=== PATIENT | male | born 1985 | race Asian ===

== ENCOUNTER 2019-09-25 09:16 | Outpatient (CLI) | payer OTHER ==
[2019-09-25 10:03] LABS: ALANINE AMINOTRANSFERASE 43 U/L (12-78); ASPARTATE AMINO TRANSFERASE 21 U/L (10-37); CHOLESTEROL 204 MG/DL (0-200); TRIGLYCERIDES 72 MG/DL (20-135)
== END 2019-09-25 23:59 | disposition home or self-care (01) ==
LOC: LAB 09:16
PROVIDERS: ATTEND Dermatology
DX: L70.0 Acne vulgaris (principal)
CPT/HCPCS: 36415; 82465; 84450; 84460; 84478

== ENCOUNTER → 2019-11-26 | Day surgery (SDC) | payer OTHER ==
[2019-11-26 11:14] LABS: ALANINE AMINOTRANSFERASE 48 U/L (12-78); ASPARTATE AMINO TRANSFERASE 25 U/L (10-37); CHOLESTEROL 211 MG/DL (0-200); TRIGLYCERIDES 140 MG/DL (20-135)
== END | disposition home or self-care (01) ==
LOC: LAB 09:24
PROVIDERS: ATTEND Dermatology
DX: L70.0 Acne vulgaris (principal); Z79.899 Other long term (current) drug therapy
CPT/HCPCS: 36415; 82465; 84450; 84460; 84478

== ENCOUNTER 2020-04-09 13:30 | Outpatient (CLI) | payer BC ==
[2020-04-09 14:25] LABS: BASOPHILS % (AUTO) 0.8 % (0-1); EOSINOPHILS # (AUTO) 0.2 X10'3 (0-0.9); EOSINOPHILS % (AUTO) 3.8 % (0-6); HEMATOCRIT 46.4 % (42.0-52.0); HEMOGLOBIN 15.9 g/dl (14.0-17.9); LYMPHOCYTES # (AUTO) 1.5 X10'3 (1.1-4.8); LYMPHOCYTES % (AUTO) 26.7 % (21-51); MEAN CORPUSCULAR HEMOGLOBIN 30.8 PG (27.0-31.0); MEAN CORPUSCULAR HGB CONC 34.2 g/dL (33.0-36.5); MEAN CORPUSCULAR VOLUME 90.1 FL (78-98); MEAN PLATELET VOLUME 7.3 FL (7.4-10.4); MONOCYTES # (AUTO) 0.5 X10'3 (0-0.9); MONOCYTES % (AUTO) 8.9 % (2-12); NEUTROPHILS # (AUTO) 3.4 X10'3 (1.8-7.7); NEUTROPHILS % (AUTO) 59.8 % (42-75); PLATELET COUNT 317 X10'3 (140-440); RED BLOOD COUNT 5.15 X10'6 (4.70-6.10); RED CELL DISTRIBUTION WIDTH 12.8 % (11.5-14.5); WHITE BLOOD COUNT 5.7 X10'3 (4.5-11.0)
[2020-04-09 14:27] LABS: CLARITY,URINE CLOUDY (Clear); COLOR,URINE YELLOW (Yellow); GLUCOSE, URINE NEGATIVE (Neg); KETONES,URINE NEGATIVE (Neg); LEUKOCYTE ESTERASE ,URINE NEGATIVE (Neg); NITRITES, URINE NEGATIVE (Neg); OCCULT BLOOD,URINE NEGATIVE (Neg); PH,URINE 7.5 (4.8-8.0); PROTEIN,URINE NEGATIVE (Neg); UROBILINOGEN,URINE 0.2 E.U/dL (0.2-1.0)
[2020-04-09 14:29] LABS: UA COLLECTION TYPE VOIDED
[2020-04-09 14:33] LABS: SQUAMOUS EPITHELIAL CELL,UR FEW /LPF (FEW)
[2020-04-09 14:34] LABS: AMORPHOUS PHOSPHATES 3+; BACTERIA,URINE FEW /HPF (Neg); RBC,URINE 0-2 /HPF (0-2); WBC,URINE 0-4 /HPF (0-4)
[2020-04-09 14:40] LABS: ALANINE AMINOTRANSFERASE 40 U/L (12-78); ALBUMIN 4.3 G/DL (3.4-5.0); ALBUMIN/GLOBULIN RATIO 1.1 (1.1-1.5); ALKALINE PHOSPHATASE 78 IU/L (46-116); ANION GAP 5 (8-16); ASPARTATE AMINO TRANSFERASE 15 U/L (10-37); BILIRUBIN,TOTAL 0.3 MG/DL (0.1-1.0); BLOOD UREA NITROGEN 23 MG/DL (7-18); BUN/CREATININE RATIO 19.3 (5.4-32.0); CALCIUM 9.4 MG/DL (8.5-10.1); CHLORIDE 105 MMOL/L (99-107); CHOL/HDL RATIO 3.1 (0.00-4.99); CHOLESTEROL 212 MG/DL (0-200); CREATININE 1.19 MG/DL (0.60-1.10); GLUCOSE 86 MG/DL (70-104); HDL CHOLESTEROL 69 MG/DL (35-60); LDL CHOLESTEROL 128 MG/DL (50-100); POTASSIUM 3.9 MMOL/L (3.5-5.1); SODIUM 141 MMOL/L (135-145); TOTAL CARBON DIOXIDE 31.5 MMOL/L (24-32); TOTAL PROTEIN 8.3 G/DL (6.4-8.2); TRIGLYCERIDES 166 MG/DL (20-135); eGFR 70 ML/MIN
[2020-04-09 16:46] LABS: HIV ANTIBODY 1&2 RAPID NON-REACTIVE (Neg)
== END 2020-04-09 23:59 | disposition home or self-care (01) ==
LOC: LAB 13:30
PROVIDERS: ATTEND Internal Medicine
DX: Z00.00 Encounter for general adult medical examination without abnormal findings (principal); J45.909 Unspecified asthma, uncomplicated
CPT/HCPCS: 36415; 80053; 80061; 81001; 84402; 84403; 85025; 86592; 86703; 86706; 86803

== ENCOUNTER 2020-08-12 11:49 | Outpatient (CLI) | payer BC ==
[2020-08-12 12:25] LABS: BASOPHILS % (AUTO) 0.8 % (0-1); EOSINOPHILS # (AUTO) 0.3 X10'3 (0-0.9); EOSINOPHILS % (AUTO) 4.1 % (0-6); HEMATOCRIT 47.1 % (42.0-52.0); HEMOGLOBIN 15.8 g/dl (14.0-17.9); LYMPHOCYTES # (AUTO) 2.1 X10'3 (1.1-4.8); LYMPHOCYTES % (AUTO) 32.4 % (21-51); MEAN CORPUSCULAR HEMOGLOBIN 30.1 PG (27.0-31.0); MEAN CORPUSCULAR HGB CONC 33.5 g/dL (33.0-36.5); MEAN CORPUSCULAR VOLUME 89.9 FL (78-98); MEAN PLATELET VOLUME 7.1 FL (7.4-10.4); MONOCYTES # (AUTO) 0.5 X10'3 (0-0.9); MONOCYTES % (AUTO) 8.6 % (2-12); NEUTROPHILS # (AUTO) 3.4 X10'3 (1.8-7.7); NEUTROPHILS % (AUTO) 54.1 % (42-75); PLATELET COUNT 325 X10'3 (140-440); RED BLOOD COUNT 5.24 X10'6 (4.70-6.10); RED CELL DISTRIBUTION WIDTH 13.3 % (11.5-14.5); WHITE BLOOD COUNT 6.3 X10'3 (4.5-11.0)
[2020-08-12 13:33] LABS: ALANINE AMINOTRANSFERASE 32 U/L (12-78); ALBUMIN 4.4 G/DL (3.4-5.0); ALBUMIN/GLOBULIN RATIO 1.1 (1.1-1.5); ALKALINE PHOSPHATASE 79 IU/L (46-116); ASPARTATE AMINO TRANSFERASE 14 U/L (10-37); BILIRUBIN,TOTAL 0.8 MG/DL (0.1-1.0); BLOOD UREA NITROGEN 20 MG/DL (7-18); BUN/CREATININE RATIO 19.2 (5.4-32.0); CALCIUM 9.3 MG/DL (8.5-10.1); CHLORIDE 105 MMOL/L (99-107); CHOL/HDL RATIO 2.8 (0.00-4.99); CHOLESTEROL 218 MG/DL (0-200); CREATININE 1.04 MG/DL (0.60-1.10); GLUCOSE 70 MG/DL (70-104); HDL CHOLESTEROL 77 MG/DL (35-60); LDL CHOLESTEROL 131 MG/DL (50-100); TOTAL CARBON DIOXIDE 28.3 MMOL/L (24-32); TOTAL PROTEIN 8.4 G/DL (6.4-8.2); TRIGLYCERIDES 51 MG/DL (20-135); eGFR 82 ML/MIN
[2020-08-12 13:39] LABS: ANION GAP 7 (8-16); POTASSIUM 5.1 MMOL/L (3.5-5.1); SODIUM 140 MMOL/L (135-145)
== END 2020-08-12 23:59 | disposition home or self-care (01) ==
LOC: LAB 11:49
PROVIDERS: ATTEND Internal Medicine
DX: I10 Essential (primary) hypertension (principal); E78.5 Hyperlipidemia, unspecified
CPT/HCPCS: 36415; 80053; 80061; 85025

== ENCOUNTER 2021-04-09 14:55 | Outpatient (CLI) | payer BC ==
[2021-04-09 15:33] LABS: BASOPHILS # (AUTO) 0.1 X10'3 (0-0.2); BASOPHILS % (AUTO) 0.8 % (0-1); EOSINOPHILS # (AUTO) 0.2 X10'3 (0-0.9); EOSINOPHILS % (AUTO) 3.5 % (0-6); HEMATOCRIT 46.7 % (42.0-52.0); HEMOGLOBIN 16.2 g/dl (14.0-17.9); LYMPHOCYTES # (AUTO) 1.7 X10'3 (1.1-4.8); LYMPHOCYTES % (AUTO) 27.3 % (21-51); MEAN CORPUSCULAR HEMOGLOBIN 30.9 PG (27.0-31.0); MEAN CORPUSCULAR HGB CONC 34.6 g/dL (33.0-36.5); MEAN CORPUSCULAR VOLUME 89.2 FL (78-98); MEAN PLATELET VOLUME 7.1 FL (7.4-10.4); MONOCYTES # (AUTO) 0.6 X10'3 (0-0.9); MONOCYTES % (AUTO) 9.6 % (2-12); NEUTROPHILS # (AUTO) 3.6 X10'3 (1.8-7.7); NEUTROPHILS % (AUTO) 58.8 % (42-75); PLATELET COUNT 329 X10'3 (140-440); RED BLOOD COUNT 5.24 X10'6 (4.70-6.10); RED CELL DISTRIBUTION WIDTH 13.1 % (11.5-14.5); WHITE BLOOD COUNT 6.1 X10'3 (4.5-11.0)
[2021-04-09 15:49] LABS: ALANINE AMINOTRANSFERASE 40 U/L (12-78); ALBUMIN 3.6 G/DL (3.4-5.0); ALBUMIN/GLOBULIN RATIO 0.9 (1.1-1.5); ALKALINE PHOSPHATASE 75 IU/L (46-116); ANION GAP 12 (8-16); ASPARTATE AMINO TRANSFERASE 22 U/L (10-37); BILIRUBIN,TOTAL 0.6 MG/DL (0.1-1.0); BLOOD UREA NITROGEN 19 MG/DL (7-18); BUN/CREATININE RATIO 11.9 (5.4-32.0); CALCIUM 8.6 MG/DL (8.5-10.1); CHLORIDE 103 MMOL/L (99-107); CHOLESTEROL 202 MG/DL (0-200); CREATININE 1.59 MG/DL (0.60-1.10); GLUCOSE 89 MG/DL (70-104); HDL CHOLESTEROL 67 MG/DL (35-60); LDL CHOLESTEROL 115 MG/DL (50-100); POTASSIUM 3.6 MMOL/L (3.5-5.1); SODIUM 140 MMOL/L (135-145); TOTAL CARBON DIOXIDE 25.1 MMOL/L (24-32); TOTAL PROTEIN 7.8 G/DL (6.4-8.2); TRIGLYCERIDES 81 MG/DL (20-135); eGFR 50 ML/MIN
[2021-04-09 16:42] LABS: HIV ANTIBODY 1&2 RAPID NON-REACTIVE (Neg)
== END 2021-04-09 23:59 | disposition home or self-care (01) ==
LOC: LAB 14:55
PROVIDERS: ATTEND Internal Medicine
DX: Z00.00 Encounter for general adult medical examination without abnormal findings (principal); I10 Essential (primary) hypertension; E78.00 Pure hypercholesterolemia, unspecified; N39.0 Urinary tract infection, site not specified
CPT/HCPCS: 36415; 80053; 80061; 84402; 84403; 85025; 86703